=== PATIENT | female | born 1980 ===

== ENCOUNTER 2017-11-05 10:00 | Outpatient (CLI) | payer BC ==
--- NOTE | 2017-11-05 11:15 | Ultrasound Report ---
BILATERAL DIGITAL DIAGNOSTIC MAMMOGRAM with CAD and LEFT BREAST ULTRASOUND: 11/05/17 CLINICAL: 37 year-old with a palpable left breast lump. COMPARISON:None. FINDINGS: The breasts are heterogeneously dense, which may obscure small masses. A partially circumscribed oval left breast mass at 12 o'clock measures 2.8 cm and correlates with the palpable lump. No architectural distortion or suspicious calcifications . The right breast is negative. Ultrasound of the left breast demonstrated a benign anechoic cyst with a smooth thin wall measuring 2.3 x 1.3 x 2.3 cm at 12 o'clock 5 cm from the nipple. IMPRESSION: A 2.3 cm benign cyst of the left breast at 12 o'clock. BI-RADS CATEGORY: 2 -- Benign RECOMMENDATION: Clinical followup and routine mammographic screening based on ACS guidelines. ACR BI-RADS MAMMOGRAPHIC CODES: 0 = Needs additional imaging evaluation; 1 = Negative; 2 = Benign; 3 = Probably benign; 4 = Suspicious; 5 = Malignant; 6 = Known biopsy-proven malignancy COMMENT: 1. Dense breast tissue, i.e., adenosis, fibrocystic changes, etc., may obscure an underlying neoplasm. 2. Approximately 10% of cancers are not detected with mammography. 3. A negative mammography report should not delay biopsy if a clinically suspicious mass is present. COMMENT: Patient follow-up letters are generated by our [employer] application.
== END 2017-11-05 10:01 | disposition home or self-care (01) ==
LOC: SPVWC 10:00
PROVIDERS: ATTEND Surgery
DX: N63.21 Unspecified lump in the left breast, upper outer quadrant (principal)
CPT/HCPCS: 77066